=== PATIENT | female | born 1990 | race African-American/Black ===

== ENCOUNTER 2016-11-06 21:25 | Emergency (ER) | payer MEDICAID ==
[~2016-11-06] VITALS: Ht 165.1 cm; Wt 91.0 kg
[2016-11-06 21:53] VITALS: BP 124/84
== END 2016-11-06 21:57 | disposition left against medical advice (07) ==
LOC: ER 21:25
DX: Z53.21 Procedure and treatment not carried out due to patient leaving prior to being seen by health care provider (principal)